=== PATIENT | male | born 1990 | race Caucasian/White ===

== ENCOUNTER 2016-08-01 07:17 | Emergency (ER) | payer OTHER ==
[~2016-08-01] VITALS: Ht 182.9 cm; Wt 70.8 kg
[2016-08-01] MEDS ORDERED: MAGNESIUM CITRATE 296 ML BOTTLE ONE (07:56)
[2016-08-01] MEDS ORDERED: MAGNESIUM CITRATE 296 ML BOTTLE PO ONE (08:00)
[2016-08-01] MEDS ORDERED: MORPHINE SULFATE INJ 4 MG/ML DISP.SYRIN ONE (09:21)
[2016-08-01] MEDS ORDERED: IV NS 0.9% 1,000 ML ONE ×2 (09:21→11:34)
[2016-08-01] MEDS ORDERED: ONDANSETRON HCL/PF 4 MG/2 ML VIAL ONE (09:21)
[2016-08-01] MEDS ORDERED: IV SET PRIMARY 1 EA INFUS.SET MC ONE (09:21)
[2016-08-01 09:30] LABS: BASOPHILS # (AUTO) 0.1 /CMM (0.0-0.2); BASOPHILS % (AUTO) 0.4 % (0.0-2.0); DIFF TOTAL % 100 %; EOSINOPHILS % (AUTO) 0.2 % (0.0-6.0); HEMATOCRIT 45 % (39-51); HEMOGLOBIN 15.4 g/dL (13.5-17.5); LYMPHOCYTES # (AUTO) 2.4 /CMM (0.8-4.8); LYMPHOCYTES % (AUTO) 19.6 % (20.0-44.0); MEAN CORPUSCULAR HEMOGLOBIN 32 PG (26.0-33.0); MEAN CORPUSCULAR HGB CONC 34 g/dl (31.0-36.0); MEAN CORPUSCULAR VOLUME 93 fL (80-96); MONOCYTES # (AUTO) 1.1 /CMM (0.1-1.30); MONOCYTES % (AUTO) 8.7 % (2.0-12.0); NEUTROPHILS # (AUTO) 8.8 /CMM (1.8-8.9); NEUTROPHILS % (AUTO) 71.1 % (43.0-81.0); PLATELET COUNT (AUTO) 343 /CMM (150-450); RED BLOOD CELL COUNT(AUTO) 4.87 MIL/uL (4.5-6.0); WHITE BLOOD COUNT (AUTO) 12.4 K/uL (4.3-11.0)
[2016-08-01] MEDS ORDERED: MORPHINE SULFATE INJ 2 MG/ML DISP.SYRIN IV ONE (09:30)
[2016-08-01] MEDS ORDERED: ONDANSETRON HCL/PF 4 MG/2 ML VIAL IVP ONE (09:30)
[2016-08-01] MEDS ORDERED: IV NS 0.9% 1,000 ML BAG IV ONE ×2 (09:30→11:30)
[2016-08-01 09:41] LABS: CALCIUM, SERUM 9.6 mg/dL (8.5-10.1); POTASSIUM 3.1 mmol/L (3.5-5.1)
[2016-08-01 09:47] LABS: ALBUMIN 4.9 g/dL (3.4-5.0); BILIRUBIN,DIRECT 0.2 mg/dL (0.0-0.2); INDIRECT BILIRUBIN 0.8 mg/dL (0.0-1.1); TOTAL PROTEIN, SERUM 8.3 g/dL (6.4-8.2)
[2016-08-01] MEDS ORDERED: POTASSIUM CHLORIDE 20 MEQ TAB.PRT.SR PO ONE ×2 (11:00→11:34)
[2016-08-01] MEDS ORDERED: IV NS 0.9% 250 ML IV ONE (11:54)
[2016-08-01] MEDS ORDERED: CT SWABBABLE VALVE TRANS SET 1 EA INFUS.SET MC ONE (11:54)
[2016-08-01] MEDS ORDERED: IOHEXOL-300 100 ML VIAL IV ONE (11:54)
[2016-08-01 13:11] VITALS: BP 130/80
== END 2016-08-01 13:12 | disposition home or self-care (01) ==
LOC: ER 07:19
DX: J02.8 Acute pharyngitis due to other specified organisms (principal); K59.00 Constipation, unspecified; B34.9 Viral infection, unspecified; F10.20 Alcohol dependence, uncomplicated; H66.90 Otitis media, unspecified, unspecified ear
CPT/HCPCS: 36415; 74160; 76705; 80048; 80076; 83690; 85025; 87804; 96361; 96374; 96375; 99285; A4606; J2270; J2405; J7030 ×2; J7050; Q9967; Z7610; 87400